=== PATIENT | female | born 1975 | race Caucasian/White ===

== ENCOUNTER → 2016-06-15 | Outpatient (CLI) | payer OTHER ==
[~2016-06-15] MED LIST: ELET40TA PO; FLUT45AE IN; GABA-113 PO; NXM/40 PO; ONDA8TAB62 SL; PROM25TA9 PO; VNTHFA/IN INH; ZONI100C39 PO; ZONI1CAP18 PO
--- NOTE | 2016-06-15 12:27 | DIAGNOSTIC IMAGING REPORT ---
SINGLE CONTRAST GASTROGRAFIN ENEMA, THROUGH BOTH THE RECTUM AND COLOSTOMY CLINICAL HISTORY: Colostomy. Evaluation for reversal. COMPARISON STUDY: CT of the abdomen and pelvis May 01, 2016 FLUOROSCOPY TIME: 5.2 minutes. TECHNIQUE: 32 fluoroscopic images were obtained. A advance scout KUB was initially obtained. Following placement of a enema tip, a single contrast Gastrografin enema through the rectum was performed. The patient's left-sided colostomy was then intubated with a Aguiar catheter. A single contrast Gastrografin enema through the remainder of the colon was then performed. FINDINGS: The advance scout KUB demonstrates a normal bowel gas pattern. A Gastrografin enema through the rectum was then performed. There is expected opacification of the pouch. No contrast extravasation was identified. A single contrast enema through the left-sided colostomy then performed. No contrast extravasation is identified. The remainder of the colon was unremarkable. The cecum was slightly obscured on since exam. There is significant residual contrast on the postevacuation image. No significant stricture was identified. Mucosal detail was diminished on this single contrast exam. IMPRESSION: 1. No significant abnormality of the rectal pouch identified. No contrast extravasation. 2. Unremarkable evaluation of the remainder of the colon through the left-sided colostomy. The cecum was suboptimally assessed on this exam. No contrast extravasation to suggest leak. No obstruction. Electronically signed by: Lico Escamilla M.D. 06/15/2016 12:25 PM
== END | disposition home or self-care (01) ==
LOC: C.RAD 09:13
PROVIDERS: ATTEND Internal Medicine Endocrinology, Diabetes & Metabolism
DX: K57.92 Diverticulitis of intestine, part unspecified, without perforation or abscess without bleeding (principal)

== ENCOUNTER → 2017-01-31 | Outpatient (CLI) | payer OTHER ==
[~2017-01-31] MED LIST changes: -ZONI1CAP18 PO
--- NOTE | 2017-01-31 13:15 | DIAGNOSTIC IMAGING REPORT ---
LEFT FOOT MIN 3 VIEWS ROUTINE, LEFT ANKLE MIN 3 VIEWS ROUTINE HISTORY: 41 years-old Female LEFT FOOT/ANKLE TRAUMA PAIN COMPARISON: None available TECHNIQUE: 3 views of the left foot and 3 views of the left ankle. FINDINGS: FOOT: Type I accessory navicular is noted. There is acute apex lateral angulation of the third DIP joint which is age indeterminate. No acute fracture, dislocation or significant degenerative changes are identified. ANKLE: Ankle mortise is well maintained and anatomically positioned. Talar dome is smooth without osteochondral defect. There is mild circumferential soft tissue swelling about the ankle. No acute fracture, dislocation or significant degenerative changes. IMPRESSION: 1. Mild circumferential soft tissue swelling about the ankle. No acute fracture or dislocation is identified within the left foot or ankle. 2. [place] lateral angulation of the third DIP joint may reflect age-indeterminate subluxation or anatomic variation. The above report was generated using voice recognition software. It may contain grammatical, syntax or spelling errors. Electronically signed by: Rogers Fitzgerald M.D. 01/31/2017 1:14 PM Dictated Date/Time: 01/31/2017 1:11 PM
== END | disposition home or self-care (01) ==
LOC: C.RAD1850 12:56
PROVIDERS: ATTEND Family Medicine
DX: S92.309A Fracture of unspecified metatarsal bone(s), unspecified foot, initial encounter for closed fracture (principal); S93.409A Sprain of unspecified ligament of unspecified ankle, initial encounter; X58.XXXA Exposure to other specified factors, initial encounter

== ENCOUNTER → 2017-03-02 | Outpatient (CLI) | payer OTHER ==
[2017-03-02 13:44] LABS: C-REACTIVE PROTEIN < 0.29 mg/dl (0-0.29); RHEUMATOID FACTOR < 10.0 U/mL (0-15)
[2017-03-02 14:41] LABS: URINE APPEARANCE CLEAR (CLEAR); URINE BILIRUBIN NEG (NEG); URINE COLOR YELLOW; URINE EPITHELIAL CELL AUTO >30 /lpf (0-5); URINE NITRITE NEG (NEG); UROBILINOGEN NEG (NEG)
[2017-03-02 14:42] LABS: MANUAL MICROSCOPIC REQUIRED? NO; REVIEW REQ? NO
[2017-03-07 02:34] LABS: ANTI-CENTROMERE AB <1.0 NEG AI (<1.0 NEG); ANTI-SS-A <1.0 NEG AI (<1.0 NEG); ANTI-SS-B <1.0 NEG AI (<1.0 NEG); DNA ds CRITHIDIA NEGATIVE (NEGATIVE); MICROSOMAL AB 3 IU/ML (<9); Sm Antibody <1.0 NEG AI (<1.0 NEG)
== END | disposition home or self-care (01) ==
LOC: C.LAB1850 12:28
PROVIDERS: ATTEND Internal Medicine Rheumatology
DX: M32.9 Systemic lupus erythematosus, unspecified (principal)

== ENCOUNTER → 2017-03-05 | Outpatient (CLI) | payer OTHER ==
--- NOTE | 2017-03-05 13:36 | DIAGNOSTIC IMAGING REPORT ---
L HAND MIN 3 VIEWS ROUTINE, R HAND MIN 3 VIEWS ROUTINE HISTORY: 41 years-old Female SYSTEMIC LUPUS ERYTHEMATOSUS bilateral hand pain without trauma. COMPARISON: None available TECHNIQUE: 3 views of the bilateral hands FINDINGS: LEFT: Mild periarticular osteopenia is noted. No acute fracture, dislocation or erosive arthropathy identified. Soft tissues are unremarkable. RIGHT: Mild periarticular osteopenia is noted. No acute fracture, dislocation or significant degenerative changes. No erosive arthropathy or soft tissue abnormality identified. No opaque foreign body. IMPRESSION: 1. No acute osseous abnormality of the right or left hand. 2. Mild bilateral periarticular osteopenia is noted without evidence of subluxation or erosive arthropathy. The above report was generated using voice recognition software. It may contain grammatical, syntax or spelling errors. Electronically signed by: Rogers Fitzgerald M.D. 03/05/2017 1:35 PM Dictated Date/Time: 03/05/2017 1:33 PM
== END | disposition home or self-care (01) ==
LOC: C.RAD1850 13:06
PROVIDERS: ATTEND Internal Medicine Rheumatology
DX: M32.9 Systemic lupus erythematosus, unspecified (principal)

== ENCOUNTER → 2017-03-06 | Outpatient (CLI) | payer OTHER ==
--- NOTE | 2017-03-06 15:02 | DIAGNOSTIC IMAGING REPORT ---
WHOLE BODY BONE SCAN HISTORY: G43.709 Chronic [id number] Systemic lupus [id number] RADIOTRACER: 27.5 mCi Tc-99m MDP STUDY/IMAGES: Planar anterior and posterior whole body imaging was performed 3 hours following the intravenous administration of radiotracer. COMPARISON: Chest x-ray 05/01/2016. KUB 05/01/2016. FINDINGS: Mild S-shaped scoliosis of the spine. Small focal areas of radiotracer uptake seen within the left ankle. This favors mild degenerative change. No additional areas of abnormal radiotracer uptake seen within the axial or appendicular skeleton. IMPRESSION: Radiotracer uptake seen within the left ankle favors mild degenerative change. Otherwise, no additional areas of abnormal radiotracer uptake. Electronically signed by: Alcides Pinto M.D. 03/06/2017 3:01 PM Dictated Date/Time: 03/06/2017 2:58 PM
== END | disposition home or self-care (01) ==
LOC: C.NUCL 11:16
PROVIDERS: ATTEND Internal Medicine Rheumatology
DX: G43.709 Chronic migraine without aura, not intractable, without status migrainosus (principal); M32.9 Systemic lupus erythematosus, unspecified; M25.50 Pain in unspecified joint

== ENCOUNTER → 2017-05-24 | Outpatient (CLI) | payer OTHER ==
--- NOTE | 2017-05-24 11:29 | DIAGNOSTIC IMAGING REPORT ---
L VENOUS DOPP LOWER EXT UNILAT CLINICAL HISTORY: KNEE PAIN pain. Edema. TECHNIQUE: Venous Doppler COMPARISON STUDY: None FINDINGS: Normal venous Doppler. Venous flow is unremarkable. Compressibility and augmentation characteristics are unremarkable. IMPRESSION: Normal study. The above report was generated using voice recognition software. It may contain grammatical, syntax or spelling errors. Electronically signed by: Riley Dejesus M.D. 05/24/2017 11:27 AM Dictated Date/Time: 05/24/2017 11:26 AM
--- NOTE | 2017-05-24 11:30 | DIAGNOSTIC IMAGING REPORT ---
L EXTREMITY NONVASCULAR LIMITED CLINICAL HISTORY: KNEE PAIN pain TECHNIQUE: Ultrasound popliteal fossa COMPARISON STUDY: None FINDINGS: Normal study. No evidence for popliteal cyst or other popliteal fossa pathology. No abnormal mass or collection by ultrasound criteria. IMPRESSION: Normal study. The above report was generated using voice recognition software. It may contain grammatical, syntax or spelling errors. Electronically signed by: Riley Dejesus M.D. 05/24/2017 11:28 AM Dictated Date/Time: 05/24/2017 11:28 AM
== END | disposition home or self-care (01) ==
LOC: C.ULTR 10:51
PROVIDERS: ATTEND Family Medicine
DX: M25.562 Pain in left knee (principal)

== ENCOUNTER 2021-11-05 18:56 | Observation (INO) ==
[2021-11-05] MEDS ORDERED: MoRPHine SULFATE 4 MG/ML 1 ML CARP\\VIAL IV PRN (19:29)
[2021-11-05] MEDS ORDERED: SODIUM CHLORIDE 0.9% 1000ML 1,000 ML IV STA (19:29)
[2021-11-05] MEDS ORDERED: ONDANSETRON INJ 2 MG/ML 2 ML VIAL IV STA (19:29)
--- NOTE | 2021-11-05 19:46 | Emergency Department Note ---
Impression & Plan Left sided abdominal pain, Spigelian hernia, Leukocytosis, Vomiting and diarrhea ED Provider Note NAME: BRANDI TOM AGE: 46 SEX: F : 1975 ARRIVES VIA: Walk-In INFORMANT: [Patient] ED PROVIDER(S): [Gavino Louie MD] CHIEF COMPLAINT: Abdominal pain HISTORY OF PRESENT ILLNESS: The patient is a 46-year-old female presents with several hours of lower abdominal pain, slightly worse on the left. The pain is an 8 or so on a scale 1 out of 10. It is sharp and stabbing. It radiates to her back. She has had some diarrhea and vomiting. No black or bloody stool. She had some chills but no fever. No cough or congestion or shortness of breath. No bad food eaten, no sick contacts. The patient has a history of diverticulitis with resection. She had to have an ostomy for a short time because of a intestinal perforation. She has since had the ostomy reversed. She has not had diverticulitis since the surgery. REVIEW OF SYSTEMS: See HPI for pertinent positives and negatives. A total of ten systems were reviewed and were otherwise negative. PMHx/PSHx: See Below SOCIAL HISTORY: See Below. PHYSICAL EXAM: GENERAL: Patient is in no acute distress. HEENT: No acute trauma, normocephalic atraumatic, mucous membranes moist, no nasal congestion, no scleral icterus. NECK: No stridor, no adenopathy, no meningismus, trachea is midline. LUNGS: Clear to auscultation bilaterally, no wheeze, no rhonchi, breath sounds equal. HEART: Without murmurs gallops or rubs, regular rate and rhythm. ABDOMEN: Soft, moderately tender in the lower abdomen--most on the left, bowel sounds positive, no peritonitis. EXTREMITIES: No cyanosis or edema, full range of motion of all the joints without pain or difficulty, no signs for acute trauma. NEUROLOGIC: Oriented x 3, no acute motor or sensory deficits, no focal weakness. SKIN: No rash, no jaundice, no diaphoresis. DIFFERENTIAL DIAGNOSIS: Appendicitis, ovarian cyst, ovarian torsion, diverticulitis, UTI, obstruction, mesenteric ischemia, aortic pathology, inflammatory bowel disease, renal colic, PUD, pancreatitis, biliary pathology, hernia, volvulus, constipation, as well as other pathologies. EMERGENCY DEPARTMENT COURSE/PROCEDURES: MEDICAL DECISION MAKING: There is a mild leukocytosis, this could be from infection or her pain. There is a normal hemoglobin and platelet count. No renal failure, no electrolyte abnormality. No concerning liver enzyme elevation. No evidence for pancreatitis. COVID test returned negative. Abdominal and pelvis CT shows evidence for a fat-containing spigelian hernia. No diverticulitis, no free air. On exam, patient was moderately tender in the left lower quadrant. She appeared somewhat uncomfortable but was not in distress. She was not febrile. The patient received IV saline, 1 L, he was given IV morphine and IV Zofran, she feels improved. I spoke with general surgery, Dr. Vazquez. Patient was seen in the ED by Dr. Vazquez. The patient is being hospitalized for potential surgical intervention. The patient is aware of her findings, case management has been involved. The fi ndings on CT explain her presentation Past Med/Surg History Medical History (Updated 11/06/21 @ 00:53 by Gavino Louie MD) Arthritis Inflammatory polyarthritis Long-term use of hydroxychloroquine Migraine with aura Migraines Neuropathic pain Peripheral neuropathy Polyarthralgia Urge and stress incontinence Surgical History H/O: hysterectomy History of colon resection History of detached retina repair Family History Father Heart disease Stroke Hypertension Grandmother (Paternal) Diabetes Hypertension Myocardial infarction Grandfather (Paternal) Hypertension Uncle Cancer Sister Thyroid disease Aunt Cancer Social History Smoking Status: Never smoker Hx Alcohol Use: No Hx Substance Use: No Preferred Language: Greenlandic Communication Ability: Effective Visual Impairment: Limited Hearing Ability: Normal Beliefs That Will Affect Care: None marital status: Current Living Situation: Spouse current occupational status: employed current occupation: manager hair Feels Safe at Home: Yes Allergies Allergies Allergy/AdvReac Type Severity Reaction Status Date / Time No Known Allergies Allergy Verified 11/05/21 19:51 Home Meds Home Medications Medication Instructions Recorded Confirmed esomeprazole magnesium 40 mg 40 mg PO DAILY 02/18/18 11/05/21 capsule,delayed release (Nexium) hydroxychloroquine 200 mg tablet 200 mg PO BID tab 02/18/18 11/05/21 (Plaquenil) Previous Rx's Medication Instructions Recorded cyclobenzaprine 10 mg tablet 10 mg PO BID PRN #60 tab 09/19/19 gabapentin 600 mg tablet 600 mg PO HS 30 Days #90 tab 12/17/20 eletriptan 40 mg tablet (Relpax) 40 mg PO .COMPLEX PRN 30 Days #12 08/12/21 tab zonisamide 100 mg capsule 200 mg PO HS #180 cap 08/12/21 Results & Data (ED) Vital Signs Vital Signs - 24 hr 11/05/21 18:57 11/05/21 18:58 11/05/21 22:00 Temperature 36.3 C L Temperature Source Temporal Artery Scan Pulse Rate 86 Pulse Rate [Right Finger] 71 57 L Pulse Rhythm [Right Finger] Regular Pulse Strength [Right Finger] Normal Respiratory Rate 18 18 16 Respiratory Effort / Characteristics Non-Labored Spontaneous Respiratory Depth Normal Blood Pressure 120/67 Blood Pressure [Left Arm] 96/49 L 98/41 L Blood Pressure Mean 84 Blood Pressure Mean [Left Arm] 64 60 Blood Pressure Position Sitting Blood Pressure Position [Left Arm] Right Lateral Lying Pulse Oximetry 100 97 98 Oxygen Delivery Method Room Air Room Air Room Air Sepsis Recent Fever Within 48 Hours No Sepsis New/Unexplained Change in Mental Status N/A Sepsis Action Taken by Nursing No Action Required 11/06/21 00:00 Temperature Temperature Source Pulse Rate Pulse Rate [Right Finger] 64 Pulse Rhythm [Right Finger] Pulse Strength [Right Finger] Respiratory Rate 18 Respiratory Effort / Characteristics Respiratory Depth Blood Pressure Blood Pressure [Left Arm] 103/55 L Blood Pressure Mean Blood Pressure Mean [Left Arm] 71 Blood Pressure Position Blood Pressure Position [Left Arm] Pulse Oximetry 95 Oxygen Delivery Method Sepsis Recent Fever Within 48 Hours Sepsis New/Unexplained Change in Mental Status Sepsis Action Taken by Snf Medications Current Medication List: was personally reviewed by me Laboratory Data Attestation: I reviewed the patient's lab results. Result diagrams: 11/05/21 19:24 11/05/21 19:24 Lab Results 11/05/21 11/05/21 11/05/21 Range/Units 19:24 19:24 20:04 WBC 13.62 H (4.8-10.8) K/uL RBC 3.97 L (4.2-5.4) M/uL Hgb 12.6 (12.0-16.0) g/dL Hct 37.7 (37-47) % MCV 95.0 (80-100) fL MCH 31.7 (25-34) pg MCHC 33.4 (32-36) g/dL RDW Std Deviation 44.6 (36.4-46.3) fL RDW Coeff of Efrain 12.7 (11.5-14.5) % Plt Count 294 (130-400) K/uL MPV 10.6 H (7.4-10.4) fL Immature Gran % (Auto) 0.3 % Neut % (Auto) 85.8 % Lymph % (Auto) 8.3 % Miner % (Auto) 3.4 % Eos % (Auto) 1.9 % Baso % (Auto) 0.3 % Neut # (Auto) 11.69 H (1.4-6.5) K/uL Lymph # (Auto) 1.13 L (1.2-3.4) K/uL Miner # (Auto) 0.46 (0.11-0.59) K/uL Eos # (Auto) 0.26 (0-0.5) K/uL Baso # (Auto) 0.04 (0-0.2) K/uL Immature Gran # (Auto) 0.04 H (0.00-0.02) K/uL Sodium 138 (136-145) mmol/L Potassium 3.9 (3.5-5.1) mmol/L Chloride 111 H (98-107) mmol/L Carbon Dioxide 22 (21-32) mmol/L Anion Gap 5 (3-11) BUN 9 (6-23) mg/dl Creatinine 0.83 (0.6-1.2) mg/dl Est Cr Clr Drug Dosing 81.5 ml/min Est GFR ( Amer) 97.3 ml/min Est GFR (Non-Af Amer) 84.0 ml/min BUN/Creatinine Ratio 10.8 (10-20) Glucose 98 (70-99(Fasting)) mg/dl Calcium 8.5 (8.5-10.1) mg/dl Total Bilirubin 0.3 (0.2-1.0) mg/dl AST 22 (13-39) U/L ALT 20 (7-52) U/L Alkaline Phosphatase 63 (34-104) U/L Total Protein 6.2 (6.0-8.3) gm/dl Albumin 3.7 (3.4-5.0) gm/dl Globulin 2.5 (2.5-4.0) gm/dl Albumin/Globulin Ratio 1.5 (0.9-2) Lipase 61 (11-82) U/L SARS-CoV-2, RNA, NAAT NEGATIVE (NEGATIVE) Administered Medications Morphine Sulfate (Morphine Sulfate 4 Mg/Ml 1 Ml Carp\Vial) 4 mg IV Q15M PRN PRN Reason: Pain Stop: 11/19/21 19:28 Last Admin: 11/05/21 19:46 Dose: 4 mg Documented by: [id number] Discontinued Medications Sodium Chloride (Nss 1000ml) 1,000 mls @ 999 mls/hr IV .Q1H1M STA Stop: 11/05/21 20:29 Last Infusion: 11/05/21 23:48 Dose: 0 mls/hr Documented by: [id number] Admin: 11/05/21 19:41 Dose: 999 mls/hr Documented by: [id number] Ioversol (Optiray 320 100ml) 92 ml IV ONCE ONE Stop: 11/05/21 21:02 Last Admin: 11/05/21 21:04 Dose: 92 ml Documented by: [id number] Ondansetron HCl (Ondansetron Inj 2 Mg/Ml 2 Ml Vial) 4 mg IV NOW STA Stop: 11/05/21 19:30 Last Admin: 11/05/21 19:46 Dose: 4 mg Documented by: [id number] Imaging Data Radiologist's Impression: Abdominal and pelvis CT: There is a fat-containing spigelian hernia in the left lower quadrant. Mild fat stranding at the hernia neck and sac which may be related to incarcerated hernia or early strangulation. No free fluid. No other obstructive or inflammatory changes in the abdomen pelvis. Discharge Plan Visit Data Chief Complaint: Abdominal Pain Stated Complaint: ABDOMINAL PAIN, MIGRAINE ED Provider: Gavino Louie Discharge Problem: Left sided abdominal pain, Spigelian hernia, Leukocytosis, Vomiting and diarrhea Patient Disposition: Admitted As Inpatient Condition: Fair Forms Stand Alone Forms: Context Relevant Prescriptions Prescriptions: No Action esomeprazole magnesium [Nexium] 40 mg capsule,delayed release(DR/EC) 40 mg PO DAILY RF: 0 hydroxychloroquine [Plaquenil] 200 mg tablet 200 mg PO BID RF: 0 eletriptan [Relpax] 40 mg tablet 40 mg PO .COMPLEX PRN (Reason: headache) 30 Days Qty: 12 RF: 0 zonisamide 100 mg capsule 200 mg PO HS Qty: 180 RF: 0 gabapentin 600 mg tablet 600 mg PO HS 30 Days Qty: 90 RF: 1 cyclobenzaprine 10 mg tablet 10 mg PO BID PRN (Reason: muscle spasm) Qty: 60 RF: 2 Referrals Referrals: Gerald Dotson MD [Primary Care Provider] -
[2021-11-05 19:50] LABS: Basophils # (auto) 0.04 K/uL (0-0.2); Basophils % (auto) 0.3 %; Eosinophils # (auto) 0.26 K/uL (0-0.5); Eosinophils % (auto) 1.9 %; Hematocrit (blood only) 37.7 % (37-47); Hemoglobin 12.6 g/dL (12.0-16.0); Immature Granulocytes # (auto) 0.04 K/uL (0.00-0.02); Immature Granulocytes % (auto) 0.3 %; Lymphocytes # (auto) 1.13 K/uL (1.2-3.4); Lymphocytes % (auto) 8.3 %; Mean Corpuscular Hemoglobin 31.7 pg (25-34); Mean Corpuscular Hgb Conc 33.4 g/dL (32-36); Mean Platelet Volume 10.6 fL (7.4-10.4); Monocytes # (auto) 0.46 K/uL (0.11-0.59); Monocytes % (auto) 3.4 %; Neutrophils # (auto) 11.69 K/uL (1.4-6.5); Neutrophils % (auto) 85.8 %; Platelet Count 294 K/uL (130-400); RDW Coefficient of Variation 12.7 % (11.5-14.5); RDW Standard Deviation 44.6 fL (36.4-46.3); Red Blood Count 3.97 M/uL (4.2-5.4); White Blood Count 13.62 K/uL (4.8-10.8)
[2021-11-05 19:59] LABS: Albumin Globulin Ratio 1.5 (0.9-2); Albumin Level 3.7 gm/dl (3.4-5.0); BUN Creatinine Ratio 10.8 (10-20); Bilirubin,Total 0.3 mg/dl (0.2-1.0); Calcium 8.5 mg/dl (8.5-10.1); Creatinine Clr Calc Pharmacy 81.5 ml/min; Est GFR (African American) 97.3 ml/min; Globulin 2.5 gm/dl (2.5-4.0); Potassium 3.9 mmol/L (3.5-5.1); Total Protein 6.2 gm/dl (6.0-8.3)
[2021-11-05] MEDS ORDERED: OPTIRAY 320 100ml IV ONE (21:01)
--- NOTE | 2021-11-06 00:33 | History & Physical Report ---
Date of Service November 06, 2021 Assessment & Plan (1) Spigelian hernia: Plan: Fat containing. Appears to be the source of her symptoms. Will admit for observation. If symptoms improve, can f/u for elective repair. If no improvement, we discussed repair with mesh this hospital stay. Risks of bleeding infection, mesh infection, recurrence all discussed . History of Present Illness Chief Complaint: abdominal pain Primary Care Provider: Gerald Dotson MD 46-year-old woman with prior colectomy and colostomy in 2016 with subsequent reversal at [facility] who presents today with acute onset of abdominal pain earlier today. Pain is worse in the left mid abdomen but radiates throughout the abdomen. It is moderate intensity. This was associated with nausea and vomiting. She also has had multiple loose stools. Due to her symptoms she presented to the emergency room. Her pain was a 10 out of 10 in severity initially and is now a 6 out of 10 following morphine. She still feels mildly nauseated after the morphine. She has never had any episodes of a bowel obstruction. She has never been told she had a hernia in the past. She has not noticed any bulge in her abdomen. Allergies Allergy/AdvReac Type Severity Reaction Status Date / Time No Known Allergies Allergy Verified 11/05/21 19:51 Home Medications Medication Instructions Recorded Confirmed Type esomeprazole magnesium 40 mg 40 mg PO DAILY 02/18/18 11/05/21 History capsule,delayed release (Nexium) hydroxychloroquine 200 mg tablet 200 mg PO BID tab 02/18/18 11/05/21 History (Plaquenil) cyclobenzaprine 10 mg tablet 10 mg PO BID PRN #60 tab 09/19/19 11/05/21 Rx gabapentin 600 mg tablet 600 mg PO HS 30 Days #90 tab 12/17/20 11/05/21 Rx eletriptan 40 mg tablet (Relpax) 40 mg PO .COMPLEX PRN 30 Days #12 08/12/21 11/05/21 Rx tab zonisamide 100 mg capsule 200 mg PO HS #180 cap 08/12/21 11/05/21 Rx Past Med/Surg History Medical History (Updated 11/06/21 @ 00:32 by Maryam Vazquez MD) Arthritis Inflammatory polyarthritis Long-term use of hydroxychloroquine Migraine with aura Migraines Neuropathic pain Peripheral neuropathy Polyarthralgia Urge and stress incontinence Surgical History H/O: hysterectomy History of colon resection History of detached retina repair Family History Father Heart disease Stroke Hypertension Grandmother (Paternal) Diabetes Hypertension Myocardial infarction Grandfather (Paternal) Hypertension Uncle Cancer Sister Thyroid disease Aunt Cancer Social History Smoking Status: Never smoker Hx Alcohol Use: No Hx Substance Use: No Preferred Language: Nepali Communication Ability: Effective Visual Impairment: Limited Hearing Ability: Normal Beliefs That Will Affect Care: None marital status: Current Living Situation: Spouse current occupational status: employed current occupation: sponsorship manager Feels Safe at Home: Yes Review of Systems Review of Systems: All systems reviewed & are unremarkable except as noted in HPI & below Physical Exam Constitutional: WD/WN, vitals as above Eyes: PERRL, conjunctivae normal, anicteric sclerae ENMT: Ears: no hearing impairment and no external ear abnormality Neck: normal visual inspection and trachea midline Respiratory: normal respiratory effort, lungs clear to auscultation Cardiovascular: RRR, no murmur, no edema Gastrointestinal (Abdomen): Inspection/Auscultation: abdomen normal to inspection and normal bowel sounds; abdomen not distended Percussion/Palpatio n: + abdomen tender (left mid abdomen), abdomen soft and + hernia (not easily palpable but there is a fullness in the area of her tenderness) Musculoskeletal: no cyanosis or clubbing, extremities motor strength 5/5 Neurologic: moves all extremities and awake Psychiatric: A+Ox3, euthymic affect Results & Data Results & Data ([facility]) Vital Signs (Past 12 Hours) Vital Signs Temp Pulse Pulse Resp BP BP Pulse Ox 11/05/21 22:00 57 L 16 98/41 L 98 11/05/21 18:58 36.3 C L 86 18 120/67 97 11/05/21 18:57 71 18 96/49 L 100 Laboratory Results Abnormal lab results 11/05/21 11/05/21 Range/Units 19:24 19:24 WBC 13.62 H (4.8-10.8) K/uL RBC 3.97 L (4.2-5.4) M/uL MPV 10.6 H (7.4-10.4) fL Neut # (Auto) 11.69 H (1.4-6.5) K/uL Lymph # (Auto) 1.13 L (1.2-3.4) K/uL Immature Gran # (Auto) 0.04 H (0.00-0.02) K/uL Chloride 111 H (98-107) mmol/L Diagnostic Findings CT scan personally reviewed - shows a spigelian fat containing hernia in her left lower quadrant, no dilated bowel loops Code Status & VTE Plan VTE Prophylaxis Plan VTE Prophylaxis will be ordered: Yes
[2021-11-06] MEDS ORDERED: PROMETHAZINE HCL 12.5 MG in SODIUM CHLORIDE 0.9% 50 ML IV PRN ×2 (01:47→09:23)
[2021-11-06] MEDS ORDERED: ONDANSETRON INJ 2 MG/ML 2 ML VIAL IV PRN (01:47)
[2021-11-06] MEDS ORDERED: CYCLOBENZAPRINE HCL 10 MG TAB PO PRN (01:47)
[2021-11-06] MEDS ORDERED: oxyCODONE/ACETAMINOPHEN 5mg/325mg TAB PO PRN ×2 (01:47)
[2021-11-06] MEDS ORDERED: MoRPHine SULFATE 4 MG/ML 1 ML CARP\\VIAL IV PRN (01:47)
[2021-11-06] MEDS ORDERED: MoRPHine SULFATE 2 MG/ML CARP IV PRN (01:47)
[2021-11-06] MEDS: LACTATED RINGER'S 1,000 ML IV SCH ×2 (02:34→11:40)
[2021-11-06] MEDS ORDERED: GLYCOPYRROLATE 0.2 MG/ML VIAL ONE (07:20)
[2021-11-06] MEDS ORDERED: DEXAMETHASONE SOD INJ 4 MG/ML VIAL ONE (07:20)
[2021-11-06] MEDS ORDERED: ONDANSETRON INJ 2 MG/ML 2 ML VIAL ONE (07:20)
[2021-11-06] MEDS ORDERED: NEOSTIGMINE METHYLSULFATE 1 MG/ML 10ML VIAL ONE (07:20)
[2021-11-06] MEDS ORDERED: PROPOFOL IV EMULSION 10 MG/ML 20 ML VIAL IV ONE (07:20)
[2021-11-06] MEDS ORDERED: MIDAZOLAM HCL 1 MG/ML 2ML VIAL ONE (07:20)
[2021-11-06] MEDS ORDERED: LIDOCAINE 2% 2 ML VIAL/AMP(20MG/ML) INFIL ONE (07:20)
[2021-11-06] MEDS ORDERED: ePHEDrine sulfate 50 MG/ML AMP ONE (07:21)
[2021-11-06] MEDS ORDERED: SODIUM CHLORIDE 0.9% INJ 10 ML VIAL ONE (07:21)
[2021-11-06] MEDS ORDERED: fentaNYL citrate 100 MCG/2 ML VIAL ONE (07:21)
--- NOTE | 2021-11-06 07:32 | Anesthesiology Consultation ---
Date of Service November 06, 2021 Assessment & Plan (1) Encounter for pre-operative examination: Chart Review Chart Review: Acceptable Risk for Surgery History Surgery Operation Date: 11/06/21 09:00 Proposed Procedures p Ventral Hernia Repair - Maryam Vazquez MD Height/Weight Height: 5 ft 3 in Weight: 75.9 kg Allergies Allergy/AdvReac Type Severity Reaction Status Date / Time No Known Allergies Allergy Verified 11/05/21 19:51 Medications Home Medications Medication Instructions Recorded Confirmed Last Taken esomeprazole magnesium 40 mg 40 mg PO DAILY 02/18/18 11/05/21 11/05/21 capsule,delayed release (Nexium) hydroxychloroquine 200 mg tablet 200 mg PO BID tab 02/18/18 11/05/21 11/05/21 (Plaquenil) cyclobenzaprine 10 mg tablet 10 mg PO BID PRN #60 tab 09/19/19 11/05/21 11/05/21 gabapentin 600 mg tablet 600 mg PO HS 30 Days #90 tab 12/17/20 11/05/21 11/04/21 eletriptan 40 mg tablet (Relpax) 40 mg PO .COMPLEX PRN 30 Days #12 08/12/2110/1011/05/21 tab zonisamide 100 mg capsule 200 mg PO HS #180 cap 08/12/21 11/05/21 11/04/21 Active Medications Generic Name Dose Route Start Last Admin Trade Name Freq PRN Reason Stop Dose Admin Lactated Ringer's 1,000 mls @ 100 mls/hr 11/06/21 01:47 11/06/21 02:34 Lr IV 12/06/21 01:46 100 mls/hr .Q10H FREDI Administration Past Medical History Medical History (Updated 11/06/21 @ 07:32 by Luis Orona MD) Arthritis Inflammatory polyarthritis Long-term use of hydroxychloroquine Migraine with aura Migraines Neuropathic pain Peripheral neuropathy Polyarthralgia Urge and stress incontinence Past Family History Family History Father Heart disease Stroke Hypertension Grandmother (Paternal) Diabetes Hypertension Myocardial infarction Grandfather (Paternal) Hypertension Uncle Cancer Sister Thyroid disease Aunt Cancer Past Surgical History Surgical History H/O: hysterectomy History of colon resection History of detached retina repair Social History Smoking Status: Never smoker Hx Alcohol Use: No Hx Substance Use: No substance use type: does not use Physical Exam Vital Signs Last Vital Signs Temp 36.7 C 11/06/21 01:35 Pulse 56 L 11/06/21 01:35 Resp 16 11/06/21 01:35 BP 103/68 11/06/21 01:35 Pulse Ox 98 11/06/21 01:35 Testing Laboratory Results 11/05/21 19:24 11/05/21 19:24
--- NOTE | 2021-11-06 07:43 | CT Scan Report ---
ABDOMEN AND PELVIS CT WITH IV CONTRAST CT DOSE: 470.00 mGy.cm HISTORY: Left lower quadrant abdominal pain. TECHNIQUE: Multiaxial CT images of the abdomen and pelvis were performed following the use of intrave nous contrast. A dose lowering technique was utilized adhering to the principles of ALARA. COMPARISON STUDY: Abdomen and pelvis CT 05/01/2016. FINDINGS: The lung bases are clear. There is bilateral L5 spondylolysis with associated spondylolisth esis. Hepatic steatosis. The gallbladder, pancreas, spleen, adrenal glands, and left kidney are unrem arkable. There is a 1 cm cyst within the right kidney. No hydronephrosis. No retroperitoneal lymphade nopathy. Normal caliber abdominal aorta. The bladder is unremarkable. The uterus surgically absent. T here are 2 right ovarian cysts with the largest measuring 2.9 cm. There is a rectosigmoid anastomosis . No evidence for bowel obstruction. There is a left lower quadrant fat-containing hernia at the prio r ostomy site. The hernia neck measures 2.4 cm. The hernia sac measures 6.5 cm. There is mild fat str anding at the hernia site. Questionable mild circumferential thickening within the mid to distal roth sverse colon is likely due to underdistention. There is no pericolonic fat stranding to suggest an ac alva process at this time. IMPRESSION: 1. Fat-containing left lower quadrant hernia at the prior ostomy site. This is consistent with a spig kp hernia. There is mild fat stranding within the hernia site which could represent an incarcerate d hernia or early strangulation. 2. Questionable mild thickening of the mid to distal transverse colon is likely due to underdistentio n. 3. No evidence for bowel obstruction. 4. Hepatic steatosis. ACT 112: Negative or not required by law. Electronically signed by: Alcides Pinto M.D. 11/06/2021 7:41 AM
[2021-11-06] MEDS ORDERED: ceFAZolin 2000MG 2,000 MG/15 ML SYR IV ONE ×2 (08:43→09:52)
--- NOTE | 2021-11-06 08:43 | Surgery Progress Note ---
Date of Service November 06, 2021 Assessment & Plan (1) Spigelian hernia: Plan: Fat containing. Appears to be the source of her symptoms. As no improvement, we discussed repair with mesh today. Risks of bleeding, infection, mesh infection, recurrence, chronic pain from sutures in muscle all discussed . Expected hospital stay and recovery reviewed. Consent signed. Admission and Anticipated Discharge Date Admission Date: November 06, 2021 Subjective Still with persistent pain at the site. No further nausea. Still needing pain medications. Review of Systems Review of Systems: All systems reviewed & are unremarkable except as noted in HPI & below Physical Exam Constitutional: WD/WN, vitals as above Eyes: PERRL, conjunctivae normal, anicteric sclerae ENMT: Ears: no hearing impairment and no external ear abnormality Neck: normal visual inspection and trachea midline Respiratory: normal respiratory effort, lungs clear to auscultation Cardiovascular: RRR, no murmur, no edema Gastrointestinal (Abdomen): Inspection/Auscultation: abdomen normal to inspection and normal bowel sounds; abdomen not distended Percussion/Palpation: + abdomen tender (left mid abdomen), abdomen soft and + hernia (not easily palpable but there is a fullness in the area of her tenderness) Musculoskeletal: no cyanosis or clubbing, extremities motor strength 5/5 Neurologic: moves all extremities and awake Psychiatric: A+Ox3, euthymic affect Results & Data ([facility]) Vital Signs (Past 12 Hours) Vital Signs Temp Pulse Resp BP Pulse Ox 11/06/21 08:08 36.6 C 54 L 16 94/61 L 96 11/06/21 01:35 36.7 C 56 L 16 103/68 98 11/06/21 00:00 64 18 103/55 L 95 11/05/21 22:00 57 L 16 98/41 L 98
[2021-11-06] MEDS ORDERED: PANTOprazole 40 MG TAB PO SCH (09:00)
[2021-11-06] MEDS ORDERED: HYDROXYCHLOROQUINE SULFATE 200 MG TAB PO SCH (09:00)
[2021-11-06] MEDS ORDERED: BUPIVACAINE 0.5 % 5 MG/1 ML MPF 30ML VIAL ONE (09:11)
[2021-11-06] MEDS ORDERED: LIDOCAINE 1%/EPINEPHRINE 1:100,000 50 ML VIAL ONE (09:11)
[2021-11-06] MEDS ORDERED: ATROPINE SULFATE 0.1 MG/ML 10ML SYR IV PRN (09:23)
[2021-11-06] MEDS ORDERED: KETOROLAC 30 MG/ML VIAL IV PRN (09:23)
[2021-11-06] MEDS ORDERED: HYDROmorphone INJ 1 MG/ML SYRINGE IV PRN (09:23)
[2021-11-06] MEDS ORDERED: ceFAZolin 330 MG/ML 1 GM VIAL ONE (09:28)
[2021-11-06] MEDS ORDERED: SUCCINYLCHOLINE CHLORIDE 20 MG/ML 10 ML VIAL IV ONE (09:41)
[2021-11-06] MEDS ORDERED: ROCURONIUM BROMIDE 10 MG/ML 5 ML VIAL IV ONE (09:41)
[2021-11-06] MEDS ORDERED: SUGAMMADEX SODIUM 200 MG/2 ML VIAL IV ONE (10:19)
[2021-11-06] MEDS ORDERED: KETOROLAC 30 MG/ML VIAL ONE (10:30)
--- NOTE | 2021-11-06 10:45 | Operative Report ---
Post Operative Report Pre & Post Diagnosis Operation Date: 11/06/21 09:00 Pre-Op Diagnosis: ABDOMINAL PAIN AND LEFT SPIGELIAN HERNIA Post-Op Diagnosis: incarcerated left spigelian hernia containing fat I identified the patient and participated in the time-out.: Yes Procedure Operation Date: 11/06/21 09:00 Actual Procedures p Ventral Hernia Repair(Not Applicable) - Maryam Vazquez MD OPEN REPAIR OF LEFT SPIGELIAN HERNIA USING MESH Surgeon Maryam Vazquez MD [employer] Principal none Estimated Blood Loss 5 Findings Consistent with Post-Op Diagnosis incarcerated left spigelian hernia containing viable fat. Defect 2 cm Fluids 1000 cc Specimens none Drains none Anesthesia Type General Complications none Disposition Accompanied Patient To Recovery: No Disposition: Recovery Room Indications The patient is a 46-year-old woman who presented with the acute onset of left- sided abdominal pain associated with some nausea and vomiting. She did not note any bulge. Imaging was consistent with an incarcerated left spigelian hernia containing bowel. She does have a history of a prior partial colectomy and colostomy for diverticulitis in 2015 followed by later colostomy reversal. She was consented for repair of her incarcerated spigelian hernia. Description of Procedure She received 2 g of Ancef preoperatively and had placement of sequential compression devices. Her abdomen abdomen was sterilely prepped and draped. She did undergo induction of general endotracheal anesthesia. A incision was made over the left spigelian hernia site. This was carried down through subcutaneous fat to the level of the external oblique. The external oblique aponeurosis was opened. The hernia sac was identified just lateral to the border of the rectus. The hernia sac was dissected free of surrounding adhesions. This was noted to contain viable fat. The hernia sac was reduced. The fascia defect measured 2 cm. A underlay Bard ventral Jaron composite mesh mesh medium size was used. This was placed underneath the fascial defect. The straps were pulled up. The mesh was secured to the fascia with 0 Prolene suture. The fascial defect itself was closed transversely incorporating the straps of the mesh. This was done with 0 Prolene. The wound was irrigated. Hemostasis was noted to be present. 40 cc of half percent Marcaine was used for local anesthesia. The external oblique aponeurosis was closed with a running 2-0 Vicryl suture. 3-0 Vicryl was used on the subcutaneous fascial layer. The skin was closed with a running subcuticular 4-0 Vicryl suture. Steri-Strips and sterile dressings were applied. She was awakened and taken to recovery in stable condition. I attest to the content of the Intraoperative Record and any orders documented therein. Any exceptions are noted below.
--- NOTE | 2021-11-06 11:27 | Anesthesiology Progress Note ---
Date of Service November 06, 2021 Anesthesia Post Procedure Vital Signs Vital Signs: Temp Pulse Pulse Pulse Resp BP BP 11/06/21 11:25 80 18 100/54 L 11/06/21 11:15 36.2 C L 82 20 106/54 L 11/06/21 11:05 79 16 108/54 L 11/06/21 10:55 80 14 106/54 L 11/06/21 10:47 36.2 C L 95 H 13 125/64 11/06/21 08:08 36.6 C 54 L 16 94/61 L 11/06/21 01:35 36.7 C 56 L 16 103/68 11/06/21 00:00 64 18 103/55 L 11/05/21 22:00 57 L 16 98/41 L 11/05/21 18:58 36.3 C L 86 18 120/67 11/05/21 18:57 71 18 96/49 L Pulse Ox 11/06/21 11:25 94 11/06/21 11:15 96 11/06/21 11:05 98 11/06/21 10:55 99 11/06/21 10:47 96 11/06/21 08:08 96 11/06/21 01:35 98 11/06/21 00:00 95 11/05/21 22:00 98 11/05/21 18:58 97 11/05/21 18:57 100 Pain Intensity Left Lower Abdomen: Pain Intensity: 4 Transfer of Care Handoff Completed per policy Notes Mental Status: alert / awake / arousable Patient Amnestic to Procedure: Yes Nausea / Vomiting: adequately controlled Pain: adequately controlled Airway Patency, RR, SpO2: stable & adequate BP & HR: stable & adequate Hydration State: stable & adequate Anesthetic Complications: no major complications apparent
[2021-11-06] MEDS ORDERED: GABAPENTIN 600 MG TAB PO SCH (21:00)
--- NOTE | 2021-11-07 15:26 | Discharge Summary ---
Date of Service November 07, 2021 Admission HPI Per Admitting Provider 46-year-old woman with prior colectomy and colostomy in 2016 with subsequent reversal at [facility] who presents today with acute onset of abdominal pain earlier today. Pain is worse in the left mid abdomen but radiates throughout the abdomen. It is moderate intensity. This was associated with nausea and vomiting. She also has had multiple loose stools. Due to her symptoms she presented to the emergency room. Her pain was a 10 out of 10 in severity initially and is now a 6 out of 10 following morphine. She still feels mildly nauseated after the morphine. She has never had any episodes of a bowel obstruction. She has never been told she had a hernia in the past. She has not noticed any bulge in her abdomen. Admission Exam (Per Admitting) Constitutional WD/WN, vitals as above Eyes PERRL, conjunctivae normal, anicteric sclerae ENMT Ears: no hearing impairment and no external ear abnormality Neck normal visual inspection and trachea midline Respiratory normal respiratory effort, lungs clear to auscultation Cardiovascular RRR, no murmur, no edema Gastrointestinal (Abdomen) Inspection/Auscultation: abdomen normal to inspection and normal bowel sounds; abdomen not distended Percussion/Palpation: + abdomen tender (left mid abdomen), abdomen soft and + hernia (not easily palpable but there is a fullness in the area of her tenderness) Musculoskeletal no cyanosis or clubbing, extremities motor strength 5/5 Neurologic moves all extremities and awake Psychiatric A+Ox3, euthymic affect Discharge Data Consultations 11/05/21 23:54 Consult General Surgery Stat Procedures Performed Operation Date: 11/06/21 09:00 Actual Procedures p Ventral Hernia Repair(Not Applicable) - Maryam Vazquez MD Hospital Course (1) Spigelian hernia: Fat containing. Appears to be the source of her symptoms. As no improvement, we discussed repair with mesh today. Risks of bleeding, infection, mesh infection, recurrence, chronic pain from sutures in muscle all discussed . Expected hospital stay and recovery reviewed. Consent signed. She tolerated procedure well and was discharged home afterwards.
== END 2021-11-06 16:44 | disposition home or self-care (01) ==
LOC: ED 18:56 → 3N 18:56
DX: G62.9 Polyneuropathy, unspecified; G43.109 Migraine with aura, not intractable, without status migrainosus; Z79.899 Other long term (current) drug therapy; K43.6 Other and unspecified ventral hernia with obstruction, without gangrene; Z90.49 Acquired absence of other specified parts of digestive tract; Z93.3 Colostomy status